=== PATIENT | male | born 1970 | race Two or more races ===

== ENCOUNTER 2024-07-29 11:08 | Inpatient (IN) | payer OTHER ==
[~2024-07-29] VITALS: Ht 170.2 cm; Wt 68.0 kg
[2024-07-29] MEDS ORDERED: PLAVIX75 MG (11:51)
[2024-07-29] MEDS ORDERED: ATACAND32 MG (11:51)
[2024-07-29] MEDS ORDERED: METFORMIN HCL1000 M2 (11:51)
[2024-07-29] MEDS ORDERED: LOPRESSOR25 MG PO (11:51)
[2024-07-29] MEDS ORDERED: ADULT ASPIRIN81 MG PO (11:52)
[2024-07-29] MEDS ORDERED: NORVASC5 MG PO (11:52)
[2024-07-29] MEDS ORDERED: LEXAPRO5 MG PO (11:52)
[2024-07-29] MEDS ORDERED: LANTUS SOL100 UNIT/1 (11:53)
[2024-07-29] MEDS ORDERED: HUMALOG100 UNIT/2 (11:53)
[2024-07-29] MEDS ORDERED: 0.9 % SODIUM CHLORIDE 1,000 ML IV STA (12:54)
[2024-07-29] MEDS ORDERED: VANCOMYCIN HCL 1,000 MG VIAL IV STA (12:56)
[2024-07-29] MEDS ORDERED: PIPERACILLIN/TAZOBACTAM SODIUM 3.375 GM VIAL IV STA (12:56)
[2024-07-29] MEDS ORDERED: VANCOMYCIN HCL 1,000 MG VIAL ONE (13:05)
[2024-07-29] MEDS ORDERED: PIPERACILLIN/TAZOBACTAM SODIUM 3.375 GM VIAL IV ONE (13:05)
[2024-07-29 13:50] LABS: HEMATOCRIT 36.9 % (39.0-48.0); HEMOGLOBIN 12.5 g/dL (13-16.00); MEAN CELL VOLUME 90.1 fL (80.0-100.00); MEAN CORPUSCULAR HEMOGLOBIN 30.5 pg (27.00-32.0); MEAN CORPUSCULAR HGB CONC 33.8 g/dl (32.0-36.0); PLATELET COUNT 366 K/uL (150-450); RED BLOOD COUNT 4.09 M/uL (4.00-6.00); RED CELL DISTRIBUTION WIDTH 13.9 % (11.5-14.5)
[2024-07-29 15:11] LABS: ALBUMIN 3.6 gm/dL (3.4-5.0); ALKALINE PHOSPHATASE 116 U/L (50-136); ALT/SGPT 63 U/L (12-78); ANION GAP 12 (10.0-20.0); AST/SGOT 41 U/L (15-37); BILIRUBIN TOTAL 0.28 mg/dL (0.3-1.2); BILIRUBIN,CONJUGATED < 0.10 mg/dL (0.0-0.2); BILIRUBIN,UNCONJUGATED 0.18 mg/dL (0.0-0.6); BLOOD UREA NITROGEN 28 mg/dL (7-18); BUN CREA RATIO 28 (7.0-25.0); CALCIUM 8.9 mg/dL (8.5-10.1); CARBON DIOXIDE 27 mEq/L (21-32); CHLORIDE 105 mmol/L (98-107); CREATININE SERUM 0.99 mg/dL (0.70-1.30); GFR 78.78; GLUCOSE FASTING 191 mg/dL (65-100); OSMOLALITY SERUM 288 MOSM/KG (275-295); POTASSIUM 4.83 mEq/L (3.5-5.1); SODIUM 139 mmol/L (136-145)
[2024-07-29] MEDS ORDERED: 0.9 % SODIUM CHLORIDE 1,000 ML IV SCH (19:30)
[2024-07-29 20:57] LABS: PH,URINE 6.5 (5.0-8.0); URINE APPEARANCE Clear; URINE BILIRRUBIN Negative (NEGATIVE); URINE BLOOD Negative; URINE COLOR Yellow; URINE GLUCOSE Negative (NEGATIVE); URINE KETONE Negative (NEGATIVE); URINE LEUKOCYTE Negative; URINE NITRATE Negative; URINE PROTEIN 30 (NEGATIVE); URINE UROBILINOGEN 0.2 E.U./dl
[2024-07-29 21:00] LABS: URINE BACTERIA 8.5 uL (0.0-1933); URINE EPITHELIAL CELLS 3.4 uL (0.0-38.8); URINE RBC 2.9 uL (0.0-20.8); URINE WBC 2.6 uL (0.0-23.2)
[2024-07-29 21:17] LABS: URINE CAST 0.14 uL (0.0-1.40)
[2024-07-29 21:46] LABS: INR 1.09; PARTIAL THROMBOPLASTIN TIME 29.6 SECONDS (22.0-34.0); PROTHROMBIN TIME 11.8 SECONDS (9.0-11.5)
[2024-07-30] MEDS ORDERED: PIPERACILLIN/TAZOBACTAM SODIUM 3.375 GM in 0.9 % SODIUM CHLORIDE 100 ML IV SCH
[2024-07-30 03:23] VITALS: BP 152/79; O2SAT 95
[2024-07-30] MEDS ORDERED: ENOXAPARIN SODIUM 40 MG/0.4 ML SYRINGE SUBCUTANEO SCH (09:00)
[2024-07-30] MEDS ORDERED: METOPROLOL SUCCINATE 100 MG TAB.SR.24H PO SCH (09:00)
[2024-07-30] MEDS ORDERED: VANCOMYCIN HCL 1,000 MG VIAL IV SCH (09:00)
[2024-07-30] MEDS ORDERED: CANDESARTAN CILEXETIL 32 MG TABLET PO SCH (09:00)
[2024-07-30] MEDS ORDERED: CLOPIDOGREL BISULFATE 75 MG TABLET PO SCH (09:00)
[2024-07-30] MEDS ORDERED: AMLODIPINE BESYLATE 5 MG TABLET PO SCH (17:00)
[2024-07-30] MEDS ORDERED: levoFLOXacin IN DEXTROSE 5 % 150 ML IV SCH (17:00)
[2024-07-30] MEDS ORDERED: AMPICILLIN SODIUM/SULBACTAM NA 3,000 MG VIAL IV SCH (18:00)
[2024-07-30 18:13] VITALS: BP 124/77; O2SAT 98
[2024-07-31 02:15] VITALS: BP 145/80; O2SAT 95
[2024-07-31 08:23] VITALS: BP 170/82
[2024-07-31] MEDS ORDERED: DEXTROSE 50 % IN WATER 0.5 G/ML VIAL IV PRN (09:45)
[2024-07-31] MEDS ORDERED: INSULIN LISPRO 1,000 UNIT/10 ML UNITS SUBCUTANEO PRN (09:45)
[2024-07-31 16:45] VITALS: BP 173/90; O2SAT 97
[2024-08-01 00:39] VITALS: BP 116/74; O2SAT 99
[2024-08-01 07:59] VITALS: BP 155/86
[2024-08-01 18:26] VITALS: BP 148/85; O2SAT 95
[2024-08-01] MEDS ORDERED: INSULIN GLARGINE,HUM.REC.ANLOG 1,000 UNITS/10 ML UNITS SUBCUTANEO STA (21:47)
[2024-08-02 00:51] VITALS: BP 136/86; O2SAT 99
[2024-08-02] MEDS ORDERED: INSULIN LISPRO 1,000 UNIT/10 ML UNITS SUBCUTANEO SCH (08:00)
[2024-08-02 08:18] VITALS: BP 160/72; BP 198/98
[2024-08-02] MEDS ORDERED: INSULIN GLARGINE,HUM.REC.ANLOG 1,000 UNITS/10 ML UNITS SUBCUTANEO SCH ×2 (09:00→21:00)
[2024-08-02 18:44] VITALS: BP 125/78; O2SAT 97
[2024-08-03 01:14] VITALS: BP 117/76; O2SAT 97
[2024-08-03 08:20] VITALS: BP 143/82
[2024-08-03] MEDS ORDERED: RIVAROXABAN 10 MG TAB PO SCH (09:08)
[2024-08-03 09:46] LABS: BASO % 0.9 % (0.1-1.2); EOS # 0.27 (0.04-0.54); EOS % 2.6 % (0.7-7.0); HEMATOCRIT 34.7 % (40.1-51.0); HEMOGLOBIN 11.7 g/dL (13.7-17.5); LYMPH % 23.7 % (19.3-53.1); MEAN CORPUSCULAR HEMOGLOBIN 29.8 pg (25.6-32.2); MONO # 1.01 (0.24-0.82); MONO % 9.6 % (4.7-12.5); NEUT # 6.62 (1.56-6.13); NEUT % 62.7 % (34.0-71.1); PLATELET COUNT 327 K/uL (163-369); RED BLOOD COUNT 3.92 M/uL (4.63-6.08); RED CELL DISTRIBUTION WIDTH 13.1 % (11.6-14.4)
[2024-08-03 10:26] LABS: CALCIUM 8.9 mg/dL (8.5-10.1); CREATININE SERUM 0.95 mg/dL (0.70-1.30); GFR 82.62; MAGNESIUM 1.6 mg/dL (1.8-2.4); PHOSPHOROUS 3.8 mg/dL (2.5-4.9); POTASSIUM 4.62 mEq/L (3.5-5.1)
[2024-08-03] MEDS ORDERED: INSULIN NPH HUMAN ISOPHANE 1,000 UNITS/10 ML UNITS SUBCUTANEO STA (11:03)
[2024-08-03 16:56] VITALS: BP 118/77
[2024-08-03] MEDS ORDERED: INSULIN GLARGINE,HUM.REC.ANLOG 1,000 UNITS/10 ML UNITS SUBCUTANEO SCH (21:00)
[2024-08-04 02:22] VITALS: BP 147/88; O2SAT 95
[2024-08-04 08:09] VITALS: BP 129/81
[2024-08-04 17:04] VITALS: BP 126/86
[2024-08-05 01:31] VITALS: BP 126/75; O2SAT 96
[2024-08-05 08:17] VITALS: BP 155/89; O2SAT 97
[2024-08-05 21:00] VITALS: BP 122/80; O2SAT 99
[2024-08-06 01:20] VITALS: BP 115/76; O2SAT 98
[2024-08-06] MEDS ORDERED: FLUCONAZOLE200 MG PO (09:09)
[2024-08-06 09:13] VITALS: BP 138/87; O2SAT 98
== END 2024-08-06 11:59 | disposition home or self-care (01) | DRG 271 ==
LOC: ER 11:51 → MEDJ 19:34
PROVIDERS: General Practice; ADMIT Internal Medicine; ATTEND Internal Medicine
PROC: 0JBR0ZZ Excision of Left Foot Subcutaneous Tissue and Fascia, Open Approach (ICD-10-PCS; principal; 2024-07-30)
PROC: B44HZZZ Ultrasonography of Bilateral Lower Extremity Arteries (ICD-10-PCS; 2024-08-03)
PROC: 04CN3ZZ Extirpation of Matter from Left Popliteal Artery, Percutaneous Approach (ICD-10-PCS; 2024-08-05)
PROC: 047Q3ZZ Dilation of Left Anterior Tibial Artery, Percutaneous Approach (ICD-10-PCS; 2024-08-05)
PROC: 047N3ZZ Dilation of Left Popliteal Artery, Percutaneous Approach (ICD-10-PCS; 2024-08-05)
PROC: 04CL3ZZ Extirpation of Matter from Left Femoral Artery, Percutaneous Approach (ICD-10-PCS; 2024-08-05)
PROC: 04CQ3ZZ Extirpation of Matter from Left Anterior Tibial Artery, Percutaneous Approach (ICD-10-PCS; 2024-08-05)
PROC: 0JBR0ZZ Excision of Left Foot Subcutaneous Tissue and Fascia, Open Approach (ICD-10-PCS; 2024-08-06)
DX: E11.52 Type 2 diabetes mellitus with diabetic peripheral angiopathy with gangrene (principal); L03.116 Cellulitis of left lower limb; E11.621 Type 2 diabetes mellitus with foot ulcer; L97.529 Non-pressure chronic ulcer of other part of left foot with unspecified severity; I70.292 Other atherosclerosis of native arteries of extremities, left leg; I10 Essential (primary) hypertension; Z79.4 Long term (current) use of insulin; Z79.84 Long term (current) use of oral hypoglycemic drugs

== ENCOUNTER 2024-09-25 01:51 | Inpatient (IN) | payer OTHER ==
[~2024-09-25] VITALS: Ht 180.3 cm; Wt 106.6 kg
[~2024-09-25 01:51] MED LIST: ADULT ASPIRIN81 MG PO; ATACAND32 MG; FLUCONAZOLE200 MG PO; HUMALOG100 UNIT/2; LANTUS SOL100 UNIT/1; LEXAPRO5 MG PO; LOPRESSOR25 MG PO; METFORMIN HCL1000 M2; NORVASC5 MG PO; PLAVIX75 MG
--- NOTE | 2024-09-25 01:56 | NUR ---
PTE ALERTA Y ORIENTADO X3 QUIEN REFIERE VENIR CON REFERIDO DE DR IRENA MENON POR ULCERA EN MEDIO DE 4 Y JOSEE DEDO DE PIE JAYA.
[2024-09-25] MEDS ORDERED: ATACAND32 MG PO (01:58)
[2024-09-25] MEDS ORDERED: LOPRESSOR25 MG PO (01:58)
[2024-09-25] MEDS ORDERED: PLAVIX75 MG PO (01:59)
[2024-09-25] MEDS ORDERED: CHILDREN'S ASPI81 MG PO (01:59)
[2024-09-25] MEDS ORDERED: LIPITOR80 MG PO (01:59)
[2024-09-25] MEDS ORDERED: LEXAPRO5 MG PO (01:59)
[2024-09-25] MEDS ORDERED: METFORMIN HCL1000 M2 PO (02:00)
[2024-09-25] MEDS ORDERED: MOUNJARO2.5 MG/0.5 SUBCUTANEO (02:00)
[2024-09-25] MEDS ORDERED: GLIPIZIDE ER10 MG PO (02:00)
[2024-09-25] MEDS ORDERED: LANTUS SOL100 UNIT/1 SUBCUTANEO (02:01)
[2024-09-25] MEDS ORDERED: HUMALOG100 UNIT/2 SUBCUTANEO (02:01)
[2024-09-25] MEDS ORDERED: 0.9 % SODIUM CHLORIDE 1,000 ML IV STA (02:22)
[2024-09-25] MEDS ORDERED: PIPERACILLIN/TAZOBACTAM SODIUM 3.375 GM VIAL IV STA (02:35)
[2024-09-25 02:51] LABS: BASO % 0.8 % (0.1-1.2); EOS # 0.12 (0.04-0.54); EOS % 0.8 % (0.7-7.0); LYMPH # 3.27 (1.18-3.74); LYMPH % 22.9 % (19.3-53.1); MEAN PLATELET VOLUME 11.00 fl (9.4-12.4); MONO # 1.12 (0.24-0.82); MONO % 7.8 % (4.7-12.5); NEUT # 9.59 (1.56-6.13); NEUT % 67.3 % (34.0-71.1); RED CELL DISTRIBUTION WIDTH 12.5 % (11.6-14.4)
--- NOTE | 2024-09-25 02:54 | NUR ---
SE REALIZA LAB Y SE ADMINISTRA TX EBONY ORDEN MEDICA BAJO MEDIDAS ASEPTICAS. SE ORIENTA PTE QUIEN REFIERE ENTENDER Y ACEPTAR
[2024-09-25 02:59] LABS: ERYTHROCYTE SEDIMENTATION RATE 70 mm/hr (0-20)
[2024-09-25 03:11] LABS: INR 1.07
[2024-09-25 03:18] LABS: ALT/SGPT 48.0 U/L (12-78); AST/SGOT 26.0 U/L (15-37); BILIRUBIN TOTAL 0.28 mg/dL (0.3-1.2); BUN CREA RATIO 25.0 (7.0-25.0); CREATININE SERUM 1.68 mg/dL (0.70-1.30); GFR 42.63; GLOBULINA 3.6 G/DL (2.4-3.5); GLUCOSE FASTING 93.0 mg/dL (65-100); OSMOLALITY SERUM 288.0 MOSM/KG (275-295)
[2024-09-25 03:28] LABS: URINE APPEARANCE Clear; URINE BILIRRUBIN Small (NEGATIVE); URINE BLOOD Negative; URINE COLOR Dark Yellow; URINE GLUCOSE Negative (NEGATIVE); URINE KETONE 15 (NEGATIVE); URINE LEUKOCYTE Trace; URINE NITRATE Negative; URINE PROTEIN 30 (NEGATIVE); URINE UROBILINOGEN 1.0 E.U./dl
[2024-09-25 03:32] LABS: URINE BACTERIA 1286.3 uL (0.0-1933); URINE EPITHELIAL CELLS 16.9 uL (0.0-38.8); URINE RBC 4.2 uL (0.0-20.8); URINE WBC 14.1 uL (0.0-23.2)
[2024-09-25 03:45] LABS: COVID-19 AG NEGATIVE (NEGATIVE)
[2024-09-25 03:49] LABS: URINE CAST > 21.83 uL (0.0-1.40)
--- NOTE | 2024-09-25 07:13 | NUR ---
SE RECIBE PACIENTE ALERTA Y EN REPOSO EL CUAL AL MOMENTO SE ENCUENTRA EN REY CON BARANDAS ELEVADAS EN POSICION SEMI SENTADA. AL MOMENTO CANALIZADO CON ANGIO #20 EN BRAZO JAYA.
[2024-09-25] MEDS ORDERED: DEXTROSE 50 % IN WATER 0.5 G/ML DISP.SYRIN IV PRN (16:30)
[2024-09-25] MEDS ORDERED: INSULIN LISPRO 1,000 UNIT/10 ML UNITS SUBCUTANEO PRN (16:30)
[2024-09-25] MEDS ORDERED: CLOPIDOGREL BISULFATE 75 MG TABLET PO SCH (16:31)
[2024-09-25] MEDS ORDERED: METOPROLOL TARTRATE 100 MG TABLET PO SCH (16:34)
[2024-09-25] MEDS ORDERED: ATORVASTATIN CALCIUM 40 MG TABLET PO SCH (16:35)
[2024-09-25] MEDS ORDERED: AMLODIPINE BESYLATE 5 MG TABLET PO SCH (16:35)
[2024-09-25] MEDS ORDERED: OxyCODONE HCL 5 MG TABLET (ROXICODONE) PO PRN (16:45)
[2024-09-25] MEDS ORDERED: OxyCODONE HCL ER 10MG TAB (OxyCONTIN) PO PRN (16:45)
[2024-09-25] MEDS ORDERED: 0.9 % SODIUM CHLORIDE 1,000 ML IV SCH (16:45)
[2024-09-25] MEDS ORDERED: ACETAMINOPHEN 325 MG TABLET PO PRN (16:45)
[2024-09-25] MEDS ORDERED: ASPIRIN 81 MG TABLET.EC PO SCH (16:52)
[2024-09-25] MEDS ORDERED: VANCOMYCIN HCL 1,000 MG VIAL IV SCH (17:00)
[2024-09-25] MEDS ORDERED: PIPERACILLIN/TAZOBACTAM SODIUM 3.375 GM in 0.9 % SODIUM CHLORIDE 100 ML IV SCH (18:00)
[2024-09-25 18:51] LABS: CHOL HDL RATIO 4.3 (0-5.0); HDL 31.0 mg/dl (40-60); LDL 70.0 mg/dl (0-130); VLDL 30.0 (0-39)
[2024-09-26 03:33] VITALS: BP 150/88; O2SAT 95
[2024-09-26 08:28] LABS: ALT/SGPT 53.0 U/L (12-78); AST/SGOT 32.0 U/L (15-37); BILIRUBIN TOTAL 0.42 mg/dL (0.3-1.2); BUN CREA RATIO 25.0 (7.0-25.0); CREATININE SERUM 0.96 mg/dL (0.70-1.30); GFR 81.32; GLOBULINA 3.7 G/DL (2.4-3.5); GLUCOSE FASTING 198.0 mg/dL (65-100); OSMOLALITY SERUM 289.0 MOSM/KG (275-295)
[2024-09-26 10:23] VITALS: BP 137/85
[2024-09-26] MEDS ORDERED: VANCOMYCIN HCL 5 MG/ML REDILUIDO IV SCH (17:00)
[2024-09-26 19:09] VITALS: BP 101/67
[2024-09-27 02:57] VITALS: BP 108/70; O2SAT 98
[2024-09-27] MEDS ORDERED: INSULIN LISPRO 1,000 UNIT/10 ML UNITS SUBCUTANEO SCH (08:00)
[2024-09-27] MEDS ORDERED: INSULIN GLARGINE,HUM.REC.ANLOG 1,000 UNITS/10 ML UNITS SUBCUTANEO SCH (09:00)
[2024-09-27 09:03] VITALS: BP 136/81
[2024-09-27] MEDS ORDERED: DEXTROSE 50 % IN WATER 0.5 G/ML VIAL IV PRN (12:00)
[2024-09-27] MEDS ORDERED: INSULIN LISPRO 1,000 UNIT/10 ML UNITS SUBCUTANEO PRN (12:00)
[2024-09-27 14:25] LABS: BASO % 1.3 % (0.1-1.2); EOS # 0.34 (0.04-0.54); EOS % 3.5 % (0.7-7.0); LYMPH # 2.50 (1.18-3.74); LYMPH % 25.6 % (19.3-53.1); MEAN PLATELET VOLUME 11.10 fl (9.4-12.4); MONO # 0.86 (0.24-0.82); MONO % 8.8 % (4.7-12.5); NEUT # 5.91 (1.56-6.13); NEUT % 60.5 % (34.0-71.1); RED CELL DISTRIBUTION WIDTH 12.5 % (11.6-14.4)
[2024-09-27 14:52] LABS: ALT/SGPT 61.0 U/L (12-78); AST/SGOT 37.0 U/L (15-37); BILIRUBIN TOTAL 0.33 mg/dL (0.3-1.2); BUN CREA RATIO 14.0 (7.0-25.0); CREATININE SERUM 1.38 mg/dL (0.70-1.30); GFR 53.49; GLOBULINA 3.6 G/DL (2.4-3.5); GLUCOSE FASTING 187.0 mg/dL (65-100); OSMOLALITY SERUM 287.0 MOSM/KG (275-295)
[2024-09-27] MEDS ORDERED: levoFLOXacin IN DEXTROSE 5 % 150 ML IV SCH (16:27)
[2024-09-27 17:51] VITALS: BP 107/78
[2024-09-27] MEDS ORDERED: VANCOMYCIN HCL 1,000 MG VIAL IV SCH (21:00)
[2024-09-28 00:40] VITALS: BP 117/71; O2SAT 97
[2024-09-28 08:45] VITALS: BP 137/78; O2SAT 94
[2024-09-28] MEDS ORDERED: VANCOMYCIN HCL 5 MG/ML REDILUIDO IV SCH ×2 (09:00)
[2024-09-28] MEDS ORDERED: ENOXAPARIN SODIUM 40 MG/0.4 ML SYRINGE SUBCUTANEO SCH (09:00)
[2024-09-28] MEDS ORDERED: SODIUM HYPOCHLORITE 1OZ TOP SCH (10:15)
[2024-09-28] MEDS ORDERED: RIVAROXABAN 20 MG TABLET PO SCH (17:00)
[2024-09-28 18:10] VITALS: BP 114/76
[2024-09-29 02:19] VITALS: BP 108/63; O2SAT 94
[2024-09-29 06:54] LABS: BUN CREA RATIO 19.0 (7.0-25.0); CREATININE SERUM 1.13 mg/dL (0.70-1.30); GFR 67.37; GLUCOSE FASTING 93.0 mg/dL (65-100); OSMOLALITY SERUM 286.0 MOSM/KG (275-295)
[2024-09-29 07:56] VITALS: BP 109/75
[2024-09-29] MEDS ORDERED: AMINO ACIDS/PROTEIN HYDROLYS 30 ML BLIST.PACK PO SCH (09:00)
[2024-09-29] MEDS ORDERED: RIVAROXABAN 10 MG TAB PO SCH (17:00)
[2024-09-29 19:18] VITALS: BP 120/77; O2SAT 98
[2024-09-30 01:36] VITALS: BP 104/49; O2SAT 97
[2024-09-30] MEDS ORDERED: INSULIN GLARGINE,HUM.REC.ANLOG 1,000 UNITS/10 ML UNITS SUBCUTANEO SCH (09:00)
[2024-09-30 09:40] VITALS: BP 143/74
[2024-09-30 17:59] VITALS: BP 151/74; O2SAT 97
[2024-10-01 02:22] VITALS: BP 154/87; O2SAT 97
[2024-10-01 07:06] LABS: BASO % 0.9 % (0.1-1.2); EOS # 0.20 (0.04-0.54); EOS % 1.4 % (0.7-7.0); LYMPH # 2.37 (1.18-3.74); LYMPH % 17.0 % (19.3-53.1); MEAN PLATELET VOLUME 11.60 fl (9.4-12.4); MONO # 1.10 (0.24-0.82); MONO % 7.9 % (4.7-12.5); NEUT # 10.06 (1.56-6.13); NEUT % 72.3 % (34.0-71.1); RED CELL DISTRIBUTION WIDTH 12.5 % (11.6-14.4)
[2024-10-01 07:49] LABS: BUN CREA RATIO 26.0 (7.0-25.0); CREATININE SERUM 0.9 mg/dL (0.70-1.30); GFR 87.61; GLUCOSE FASTING 118.0 mg/dL (65-100); OSMOLALITY SERUM 286.0 MOSM/KG (275-295)
[2024-10-01 10:44] VITALS: BP 146/89; O2SAT 97
[2024-10-01] MEDS ORDERED: PIPERACILLIN/TAZOBACTAM SODIUM 4.5 GM VIAL IV ONE (15:15)
[2024-10-01] MEDS ORDERED: CEFEPIME HCL 2,000 MG in 0.9 % SODIUM CHLORIDE 100 ML IV SCH (17:00)
[2024-10-01 17:09] VITALS: BP 132/72; O2SAT 98
[2024-10-01] MEDS ORDERED: AMPICILLIN SODIUM/SULBACTAM NA 3,000 MG in 0.9 % SODIUM CHLORIDE 100 ML IV SCH (18:00)
[2024-10-01] MEDS ORDERED: TAZOBACTAM IV SCH (21:00)
[2024-10-01] MEDS ORDERED: PIPERACILLIN IV SCH (21:00)
[2024-10-02 02:14] VITALS: BP 133/80; O2SAT 96
[2024-10-02 09:14] VITALS: BP 153/67; O2SAT 98
[2024-10-03 02:44] VITALS: BP 143/75; O2SAT 91
[2024-10-03] MEDS ORDERED: INSULIN NPH HUM/REG INSULIN HM 1,000 UNIT/10 ML UNITS SUBCUTANEO SCH (08:00)
[2024-10-03] MEDS ORDERED: INSULIN GLARGINE,HUM.REC.ANLOG 1,000 UNITS/10 ML UNITS SUBCUTANEO SCH (09:00)
[2024-10-03 09:34] VITALS: BP 155/68
[2024-10-03 18:01] VITALS: BP 128/53
[2024-10-04 00:32] VITALS: BP 132/85
[2024-10-04 08:09] LABS: BASO % 0.9 % (0.1-1.2); EOS # 0.43 (0.04-0.54); EOS % 3.2 % (0.7-7.0); LYMPH # 2.74 (1.18-3.74); LYMPH % 20.2 % (19.3-53.1); MEAN PLATELET VOLUME 11.40 fl (9.4-12.4); MONO # 1.59 (0.24-0.82); MONO % 11.7 % (4.7-12.5); NEUT # 8.63 (1.56-6.13); NEUT % 63.4 % (34.0-71.1); RED CELL DISTRIBUTION WIDTH 12.7 % (11.6-14.4)
[2024-10-04 09:17] VITALS: BP 144/70
[2024-10-04 18:22] VITALS: BP 168/73
[2024-10-05 00:37] VITALS: BP 154/81
[2024-10-05 10:18] VITALS: BP 159/76; O2SAT 97
[2024-10-05] MEDS ORDERED: INSULIN LISPRO 1,000 UNIT/10 ML UNITS SUBCUTANEO SCH ×2 (12:00→17:00)
[2024-10-05 19:14] VITALS: BP 127/82
[2024-10-06 02:35] VITALS: BP 109/73; O2SAT 97
[2024-10-06 08:41] VITALS: BP 186/98; O2SAT 96
[2024-10-06] MEDS ORDERED: INSULIN LISPRO 1,000 UNIT/10 ML UNITS SUBCUTANEO SCH (12:00)
[2024-10-06 19:44] VITALS: BP 143/78
[2024-10-07 02:28] VITALS: BP 179/98; O2SAT 95
[2024-10-07 07:00] LABS: BUN CREA RATIO 26.0 (7.0-25.0); CREATININE SERUM 0.86 mg/dL (0.70-1.30); GFR 92.32; GLUCOSE FASTING 89.0 mg/dL (65-100); OSMOLALITY SERUM 284.0 MOSM/KG (275-295); PHOSPHOKINASE CREATININE 111.0 U/L (39-308)
[2024-10-07 08:32] VITALS: BP 122/61
[2024-10-07 18:05] VITALS: BP 151/85; O2SAT 98
[2024-10-07] MEDS ORDERED: FAMOTIDINE/PF 20 MG/2 ML VIAL IV SCH (18:30)
[2024-10-08 03:04] VITALS: BP 163/49; O2SAT 98
[2024-10-08 08:53] VITALS: BP 136/67
[2024-10-08] MEDS ORDERED: INSULIN GLARGINE,HUM.REC.ANLOG 1,000 UNITS/10 ML UNITS SUBCUTANEO SCH (09:00)
[2024-10-08 16:55] VITALS: BP 155/94; O2SAT 99
[2024-10-09 01:50] VITALS: BP 160/70; O2SAT 98
[2024-10-09 09:29] VITALS: BP 133/76; O2SAT 95
[2024-10-09] MEDS ORDERED: CEFEPIME HCL 2,000 MG VIAL ONE (15:42)
[2024-10-09 16:00] VITALS: BP 162/95
[2024-10-09] MEDS ORDERED: AMPICILLIN SODIUM/SULBACTAM NA 3,000 MG VIAL ONE (16:38)
[2024-10-10 01:19] VITALS: BP 113/77; O2SAT 98
[2024-10-10 10:18] VITALS: BP 113/70; O2SAT 99
[2024-10-10 18:45] VITALS: BP 151/86; O2SAT 100
[2024-10-11 02:10] VITALS: BP 134/74; O2SAT 97
[2024-10-11 10:38] VITALS: BP 109/75; O2SAT 97
[2024-10-11 18:11] VITALS: BP 125/74; O2SAT 100
[2024-10-12 01:58] VITALS: BP 135/70; O2SAT 96
[2024-10-12 07:51] LABS: BASO % 1.3 % (0.1-1.2); EOS # 0.54 (0.04-0.54); EOS % 5.0 % (0.7-7.0); LYMPH # 2.93 (1.18-3.74); LYMPH % 27.1 % (19.3-53.1); MEAN PLATELET VOLUME 10.90 fl (9.4-12.4); MONO # 0.95 (0.24-0.82); MONO % 8.8 % (4.7-12.5); NEUT # 6.20 (1.56-6.13); NEUT % 57.4 % (34.0-71.1); RED CELL DISTRIBUTION WIDTH 12.6 % (11.6-14.4)
[2024-10-12] MEDS ORDERED: INSULIN LISPRO 1,000 UNIT/10 ML UNITS SUBCUTANEO SCH (08:00)
[2024-10-12 08:19] LABS: ALT/SGPT 53.0 U/L (12-78); AST/SGOT 27.0 U/L (15-37); BILIRUBIN TOTAL 0.23 mg/dL (0.3-1.2); BUN CREA RATIO 37.0 (7.0-25.0); CREATININE SERUM 0.93 mg/dL (0.70-1.30); GFR 84.35; GLOBULINA 3.6 G/DL (2.4-3.5); GLUCOSE FASTING 119.0 mg/dL (65-100); OSMOLALITY SERUM 292.0 MOSM/KG (275-295)
[2024-10-12] MEDS ORDERED: INSULIN GLARGINE,HUM.REC.ANLOG 1,000 UNITS/10 ML UNITS SUBCUTANEO SCH ×2 (09:00)
[2024-10-12 10:30] VITALS: BP 138/88; O2SAT 97
[2024-10-12] MEDS ORDERED: AMLODIPINE BESYL5 MG PO (12:27)
[2024-10-12] MEDS ORDERED: LIPITOR40 M1 PO (12:27)
[2024-10-12] MEDS ORDERED: XARELTO10 MG PO (12:27)
[2024-10-12] MEDS ORDERED: CLOPIDOGREL BIS75 MG PO (12:27)
[2024-10-12] MEDS ORDERED: METOPROLOL TAR100 MG PO (12:30)
[2024-10-12] MEDS ORDERED: ST. JOSEPH ASPI81 M2 PO (12:31)
== END 2024-10-12 13:12 | disposition home or self-care (01) | DRG 593 ==
LOC: ER 01:51 → MEDJ 16:44
PROVIDERS: General Practice; Internal Medicine; Internal Medicine Infectious Disease; Student in an Organized Health Care Education/Training Program; ADMIT Internal Medicine; ATTEND Internal Medicine
PROC: B54CZZZ Ultrasonography of Left Lower Extremity Veins (ICD-10-PCS; principal; 2024-09-25)
PROC: BQ3MZZZ Magnetic Resonance Imaging (MRI) of Left Foot (ICD-10-PCS; 2024-09-27)
PROC: B24BYZZ Ultrasonography of Heart with Aorta using Other Contrast (ICD-10-PCS; 2024-10-05)
PROC: 02HV33Z Insertion of Infusion Device into Superior Vena Cava, Percutaneous Approach (ICD-10-PCS; 2024-10-07)
DX: L97.529 Non-pressure chronic ulcer of other part of left foot with unspecified severity (principal); L03.116 Cellulitis of left lower limb; M86.9 Osteomyelitis, unspecified; I10 Essential (primary) hypertension; E11.9 Type 2 diabetes mellitus without complications; Z79.4 Long term (current) use of insulin; E11.622 Type 2 diabetes mellitus with other skin ulcer; N19 Unspecified kidney failure; B96.5 Pseudomonas (aeruginosa) (mallei) (pseudomallei) as the cause of diseases classified elsewhere

== ENCOUNTER 2024-11-16 10:14 | Emergency (ER) | payer OTHER ==
[~2024-11-16] VITALS: Ht 180.3 cm; Wt 106.6 kg
[~2024-11-16 10:14] MED LIST changes: +AMLODIPINE BESYL5 MG PO; +ATACAND32 MG PO; +CHILDREN'S ASPI81 MG PO; +CLOPIDOGREL BIS75 MG PO; +GLIPIZIDE ER10 MG PO; +HUMALOG100 UNIT/2 SUBCUTANEO; +LANTUS SOL100 UNIT/1 SUBCUTANEO; +LIPITOR40 M1 PO; +LIPITOR80 MG PO; +METFORMIN HCL1000 M2 PO; +METOPROLOL TAR100 MG PO; +MOUNJARO2.5 MG/0.5 SUBCUTANEO; +PLAVIX75 MG PO; +ST. JOSEPH ASPI81 M2 PO; +XARELTO10 MG PO
== END 2024-11-16 14:48 | disposition home or self-care (01) ==
LOC: ER 10:14
DX: T82.898A Other specified complication of vascular prosthetic devices, implants and grafts, initial encounter (principal); Y92.89 Other specified places as the place of occurrence of the external cause; I10 Essential (primary) hypertension; E11.9 Type 2 diabetes mellitus without complications; Z79.4 Long term (current) use of insulin; Z79.84 Long term (current) use of oral hypoglycemic drugs